=== PATIENT | male | born 1965 | race Caucasian/White ===

== ENCOUNTER 2018-10-31 20:50 | Emergency (ER) ==
[2018-10-31 21:03] VITALS: BP 120/78; TEMP 98.8; BMI 20.8
[2018-10-31] MEDS ORDERED: TORADOL IM STA (21:20)
--- NOTE | 2018-10-31 21:25 | ED.PDOC ---
General ED Provider: Dr. HILDA MAURO MD Chief Complaint: Non-specific Complaint Stated Complaint: left ribs hurt Time Seen by Physician: 21:13 Mode of Arrival: Walk-In Information Source: Patient Exam Limitations: No limitations Primary Care Provider: ROHIT CHAVIS Nursing and Triage Documentation Reviewed and Agree: Yes Does patient meet sepsis criteria?: No If yes, has appropriate treatment been initiated?: Yes System Inflammatory Response Syndrome: Not Applicable Sepsis Protocol: For patient's 13 years and over: Temp is 96.8 and below OR 101 and greater Pulse >90 BPM Resp >20/minute Acutely Altered Mental Status Are patient's symptoms suggestive of a new infection, such as: -Pneumonia -Skin, Soft Tissue -Endocarditis -UTI -Bone, Joint Infection -Implantable Device -Acute Abdominal Infection -Wound Infection -Meningitis -Blood Stream Catheter Infection -Unknown Review of Systems - Review Of Systems Constitutional: Reports: No symptoms Eyes: Reports: No symptoms Ears, Nose, Mouth, Throat: Reports: No symptoms Respiratory: Reports: No symptoms Cardiac: Reports: No symptoms GI: Reports: No symptoms : Reports: No symptoms Musculoskeletal: Reports: No symptoms Skin: Reports: No symptoms Neurological: Reports: No symptoms Endocrine: Reports: No symptoms Hematologic/Lymphatic: Reports: No symptoms All Other Systems: Reviewed and Negative Past Medical History - Past Medical History Endocrine: Reports: None, Unknown Cardiovascular: Reports: Unknown Respiratory: Reports: None Hematological: Reports: None Gastrointestinal: Reports: None Genitourinary: Reports: None Neuro/Psych: Reports: None Musculoskeletal: Reports: None Cancer: Reports: None - Surgical History General Surgical History: Reports: Unknown - Family History Family History: Reports: Unknown - Social History Smoking Status: Current every day smoker, Heavy tobacco smoker Hx Substance Use: Yes (ALCOHOL IN THE PAST) Alcohol Screening: None - Immunizations Tetanus Shot up to Date: Yes Physical Exam - Physical Exam Appearance: Thin Ill-appearing: None Pain Distress: Mild Eyes: SAV ENT: Ears normal, Nose normal, Oropharynx normal Neck: Supple Respiratory: Airway patent, Breath sounds clear, Breath sounds equal, Respirations nonlabored Cardiovascular: RRR, Pulses normal, No rub, No murmur GI/: Soft, Nontender, No masses, Bowel sounds normal, No Organomegaly Musculoskeletal: Limited ROM (tenderness lower left ribs anteriorly) Critical Care Note - Critical Care Note Total Time (mins): 0 Course - Course Orders, Labs, Meds: Orders Category Date Time Status Ketorolac Tromethamine [Toradol] MEDS 10/31/18 21:20 Discontinued 60 mg IM ONCE STA RIBS, UNILATERAL LEFT Stat RADS 10/31/18 21:19 Completed Medications Discontinued Medications Generic Name Dose Route Start Last Admin Trade Name Marilou PRN Reason Stop Dose Admin Ketorolac Tromethamine 60 mg 10/31/18 21:20 10/31/18 21:38 Toradol IM 10/31/18 21:21 60 mg ONCE STA Administration Vital Signs: Temp Pulse Resp BP Pulse Ox 10/31/18 20:50 98.8 F 69 18 120/78 97 Departure - Departure Time of Disposition: 22:00 Disposition: HOME SELF-CARE Discharge Problem: Contusion of rib on left side Instructions: Rib Contusion (ED) Condition: Good Pt referred to PMD for follow-up: Yes IPMP verified?: No Prescriptions: Ketorolac Tromethamine [Toradol] 10 mg PO BID 5 Days #10 tablet NS Allergies/Adverse Reactions: Allergies No Known Allergies Allergy (Verified 10/31/18 21:41) Home Medications: Ambulatory Orders Ketorolac Tromethamine [Toradol] 10 mg PO BID 5 Days #10 tablet NS 10/31/18
--- NOTE | 2018-10-31 21:40 | DI ---
Exam: Three-view left ribs. Date: 10/31/2018. Comparison: None. HISTORY: Injury with left rib pain. FINDINGS: The lungs are clear. The cardiac silhouette and pulmonary vasculature are normal. Granul omatous calcifications are present. No visibly displaced left-sided rib fractures are seen. Impression: No visibly displaced left-sided rib fractures. Old granulomatous disease.
== END 2018-10-31 22:08 | disposition home or self-care (01) ==
LOC: ED 20:50
DX: S20.212A Contusion of left front wall of thorax, initial encounter (principal)
CPT/HCPCS: 96372; 99282